=== PATIENT | female | born 1975 | race Asian ===

== ENCOUNTER → 2018-08-18 | Emergency (ER) | payer SELFPAY, OTHER ==
[2018-08-18] MEDS: DIPHTH/TET/ACEL PERTUSS (ADULT) 0.5 ML VIAL IM* (03:30)
== END | disposition home or self-care (01) ==
LOC: FTE 00:17
DX: S01.81XA Laceration without foreign body of other part of head, initial encounter (principal); W20.8XXA Other cause of strike by thrown, projected or falling object, initial encounter; Y92.89 Other specified places as the place of occurrence of the external cause; Z23 Encounter for immunization
CPT/HCPCS: 12011; 90471; 90715; 99283-25